=== PATIENT | male | born 1955 | race Caucasian/White ===

== ENCOUNTER 2019-05-26 14:02 | Outpatient (CLI) | payer OTHER ==
--- NOTE | 2019-05-26 14:39 | RAD ---
XR Knee Rt 4 View STANDARD HISTORY: left knee pain FINDINGS: No fracture or dislocation is identified. Mild degenerative changes present.
== END 2019-05-26 14:03 | disposition home or self-care (01) ==
LOC: SCSRAD 14:02
PROVIDERS: ATTEND Nurse Practitioner Family
DX: M25.561 Pain in right knee (principal); M17.11 Unilateral primary osteoarthritis, right knee